=== PATIENT | male | born 1980 | race Hispanic/Latino ===

== ENCOUNTER 2018-11-10 08:49 | Emergency (ER) | payer BC, SELFPAY ==
--- NOTE | 2018-11-10 09:42 | RAD ---
Chest 2 views HISTORY: Dyspnea. COMPARISON: None available. FINDINGS: Cardiac silhouette and pulmonary vasculature are unremarkable. Mediastinum is midline. No c onfluent airspace consolidation, pneumothorax, or pleural fluid. IMPRESSION: No active cardiopulmonary abnormalities are demonstrated.
== END 2018-11-10 10:10 | disposition home or self-care (01) ==
LOC: ERS 08:49
DX: J20.9 Acute bronchitis, unspecified (principal); E11.9 Type 2 diabetes mellitus without complications; F41.9 Anxiety disorder, unspecified; Z79.891 Long term (current) use of opiate analgesic; Z79.84 Long term (current) use of oral hypoglycemic drugs
CPT/HCPCS: 36416; 71046; 94640; J7620